=== PATIENT | female | born 1990 | race Caucasian/White ===

== ENCOUNTER 2018-09-08 18:11 | Emergency (ER) | payer OTHER ==
[~2018-09-08] VITALS: Ht 172.7 cm; Wt 61.2 kg
[2018-09-08] MEDS: IBUPROFEN 600 MG TABLET PO ONE ×2 (19:13→20:00)
[2018-09-08] MEDS ORDERED: IBUPROFEN 600 MG TABLET ONE (19:14)
[2018-09-08 19:29] LABS: *BLOOD, URINE NEGATIVE (NEGATIVE); *CLARITY,URINE SLIGHTLY CLOUDY (CLEAR); *COLOR,URINE YELLOW (YELLOW); *KETONES,URINE 4+ (NEGATIVE); *UROBILINOGEN,URINE 0.2 E.U./dl (NORMAL); LEUKOCYTE ESTERASE ,URINE TRACE (NEGATIVE); NITRITE, URINE NEGATIVE (NEGATIVE); UGLUCOSE NEGATIVE (NEGATIVE)
[2018-09-08 19:31] LABS: BASOPHILS % (AUTO) 0.4 % (0.0-2.0); HEMATOCRIT 38.1 % (31.2-41.9); LYMPHOCYTES # (AUTO) 0.8 K/uL (20.0-40.0); LYMPHOCYTES % (AUTO) 8.7 % (20.5-51.5); MEAN CORPUSCULAR HEMOGLOBIN 29.9 uug (24.7-32.8); MEAN CORPUSCULAR HGB CONC 34 g/dL (32.3-35.6); MEAN CORPUSCULAR VOLUME 87.5 fL (75.5-95.3); MONOCYTES # (AUTO) 0.4 K/uL (2.0-10.0); NEUTROPHILS # (AUTO) 7.7 K/uL (1.8-8.9); NEUTROPHILS % (AUTO) 86.9 % (38.5-71.5); PLATELET COUNT (AUTO) 119 K/uL (179-408); RED BLOOD CELL COUNT(AUTO) 4.35 MIL/uL (3.63-4.92); WHITE BLOOD COUNT (AUTO) 8.9 K/uL (3.8-11.8)
[2018-09-08 19:39] LABS: *BILIRUBIN,URIN 1+ (NEGATIVE)
[2018-09-08 19:40] LABS: BACTERIA,URINE FEW /HPF (NONE SEEN); RBC,URINE 0-3 /HPF (0-3); SQUAMOUS EPITHELIAL CELL,UR MODERATE /HPF (NONE SEEN)
[2018-09-08 19:41] LABS: CREATININE 0.9 mg/dL (0.6-1.3); POTASSIUM 3.6 mmol/L (3.5-5.1)
[2018-09-08 19:47] LABS: BILIRUBIN,TOTAL 0.5 mg/dL (0.2-1.0); TOTAL PROTEIN, SERUM 7.1 g/dL (6.4-8.2)
[2018-09-08] MEDS ORDERED: IV NORMAL SALINE 1000 ML BAG IV ONE (20:00)
--- NOTE | 2018-09-08 20:46 | NUR ---
RECHECKED ORAL TEMP. RESULT IS 98.9. PATIENT SLEEPING ON GURNY BUNDLE UP WITH 2 JACKETS AND 1 COVER OVER HERSELF
[2018-09-08] MEDS ORDERED: ACETAMINOPHEN ES 500 MG TABLET PO ONE (21:00)
[2018-09-08] MEDS ORDERED: ACETAMINOPHEN ES 500 MG TABLET ONE (21:02)
[2018-09-08 21:52] VITALS: BP 119/78
--- NOTE | 2018-09-08 21:52 | NUR ---
RECHECKED ORAL TEMP. RESULT WAS 99.0. PATIENT WAS BUNDLE UP WITH 2 JACKETS AND BLANKET. PATIENT SIGNIFICANT OTHER COMFORTABLE TO TAKE PATIENT HOME. WILL TAKE PATIENT BACK TO NEAREST ER FOR WORSENING SYMPTOMS
== END 2018-09-08 21:54 | disposition home or self-care (01) ==
LOC: ER 18:11
DX: R50.9 Fever, unspecified (principal); M54.2 Cervicalgia; H92.01 Otalgia, right ear; G43.909 Migraine, unspecified, not intractable, without status migrainosus
CPT/HCPCS: 36415; 85025; 86403; 87070; A4663; A9150; J7030